=== PATIENT | male | born 1955 | race Caucasian/White ===

== ENCOUNTER 2025-03-18 12:04 | Emergency (ER) | payer MEDICARE, BC, SELFPAY ==
[2025-03-18 12:05] VITALS: BP 146/87
--- NOTE | 2025-03-18 12:47 | ED.GENMED ---
History of Present Illness
General
Chief Complaint: Musculo-Skeletal Complaint
Time Seen by Provider: 03/18/25 12:14
History of Present Illness
History of Present Illness:
Patient is a 70-year-old male with a prior history of CVA and residual right-sided upper and lower extremity symptoms including spasming and mild weakness. He goes to physical therapy for this. He has noted over the past few months that his skin
has been redder in his righ upper t and lower extremities. He had venous ultrasounds done earlier in the month which were negative. Denies any new weakness. Denies any new sensory symptoms.
Phy Exam
Physical Exam
Physical Exam:
GENERAL APPEARANCE: NAD, well developed/ well nourished
EYES lids/conjunctiva normal
EARS/NOSE/THROAT Mucous membranes moist,
HEAD/NECK normocephalic atraumatic, neck is supple.
RESPIRATORY respiratory effort normal, speaks in full sentences, no accessory muscle use. Lungs clear to auscultation without rhonchi, wheezes, rales
CARDIAC Regular rate and rhythm, no edema.
ABDOMINAL Soft, ND/NT.
MUSCLES/EXTREMITIES No abnormal range of motion, no swelling.
SKIN Warm, pink and dry. No rashes. Mildly darker/redder skin to RUE/RLE
NEUROLOGICAL Speech is clear and appropriate. Normal level of consciousness. 5/5 strength in all extremities, spasticity in the right upper and right lower extremity, sensation intact throughout
Course
Orders/Labs/Results
Orders:
Orders
03/18/25 13:42
Basic Metabolic Panel Urgent
CBC/With Diff [Complete Blood Count/With Diff] Urgent
PTT Urgent
Prothrombin Time Urgent
03/18/25 14:57
Acetaminophen [Tylenol] 650 mg PO NOW STA
Abnormal Lab Results
03/18/25
13:42
MPV 10.9 H fL
(7.4-10.4)
Absolute Monos (auto) 0.7 H 10^3/uL
(0.1-0.6)
Lymphocytes % 17.2 L %
(20.5-51.1)
Monocytes % 9.4 H %
(1.7-9.3)
PT 16.9 H Sec
(11.4-14.6)
APTT 36.8 H Sec
(23.4-35.0)
Chloride 109 H mmol/L
(98-107)
03/18/25 13:42
03/18/25 13:42
Vital Signs
Initial and Last Documented VS:
Initial Vital Signs
Temp Pulse Resp BP
98.1 F 89 16 146/87
03/18/25 12:05 03/18/25 12:05 03/18/25 12:05 03/18/25 12:05
Last Documented Vital Signs
Temp Pulse Resp BP
98.1 F 89 16 146/87
03/18/25 12:05 03/18/25 12:05 03/18/25 12:05 03/18/25 12:05
*Pulse Oximetry
Oxygen Mode of Delivery: Room air
Patient hypoxic: no
*Critical Care Note
Total Time (30-74mins, 75-104mins- exclusive of procedures): Not Applicable
ED Attending Note
ED Attending Note
ED Attending Note:
Suspect circulatory changes in the setting of his prior stroke given location of symptoms matches his prior stroke. He did have recent negative ultrasounds and has no swelling or pain to suggest DVT at this time.
-
Portions of this chart may have been created with voice recognition software.� Occasional wrong word or��sound alike� substitutions may have occurred due to the inherent limitations of voice recognition software.
Discharge Plan
Departure
Patient Disposition: Home (Routine Discharge)
Date of Disposition: 03/18/25
Time of Disposition: 14:22
Patient with high blood pressure during this ER visit?: Yes
Discharge Problem:
Peripheral vascular disease
Referrals:
Storm Borja CRNP [Family Provider, General]
Activity Restrictions/Additional Instructions:
please follow up with your outpatient doctors for continued outpatient workup
Interventions
Interventions:
*Risk Screen - Suicide Last Done: 03/18/25 12:05
*General Assessment Last Done: 03/18/25 12:05
*Neglect/Abuse Screening Last Done: 03/18/25 12:04
*ED- Fall Risk Assessment Last Done: 03/18/25 12:04
ED-Musculoskeletal Assessment Last Done: 03/18/25 12:04
Discharge Date and Time
Discharge Date/Time: 03/18/25 15:52
Print Language: SAUDI ARABIAN
[2025-03-18 13:55] LABS: Hematocrit 45.1 % (39.0-52.0); Hemoglobin 14.9 g/dL (13.0-18.0); Mean Corp Hgb Conc. 33.0 g/dL (33.0-37.0); Mean Corpuscular Volume 93.6 fL (80.0-94.0); Nucleated Red Blood Cells % 0 % (-); Platelet Count 147 10^3/uL (130-400); Red Cell Dist. Width 13.2 % (11.5-14.5)
[2025-03-18 14:04] LABS: INR 1.35; PT 16.9 Sec (11.4-14.6)
[2025-03-18 14:05] LABS: APTT 36.8 Sec (23.4-35.0)
[2025-03-18 14:09] LABS: Blood Urea Nitrogen 20 mg/dl (9-20); Calcium 9.0 mg/dl (8.4-10.2); Carbon Dioxide 23 mmol/L (22-30); Chloride 109 mmol/L (98-107); Glucose 88 mg/dl (70-99); Potassium 4.1 mmol/L (3.5-5.1); Sodium 137 mmol/L (135-145); eGFR > 60.00
[2025-03-18] MEDS: TYLENOL 650 MG PO (15:03)
== END 2025-03-18 15:52 | disposition home or self-care (01) ==
LOC: EMR 12:04
PROVIDERS: EMERGENCY PHYSICIAN Emergency Medicine; FAMILY PHYSICIAN Nurse Practitioner Gerontology
DX: I73.9 Peripheral vascular disease, unspecified (principal); R03.0 Elevated blood-pressure reading, without diagnosis of hypertension; I69.351 Hemiplegia and hemiparesis following cerebral infarction affecting right dominant side
CPT/HCPCS: 99283; 80048; 85025; 85610; 85730